=== PATIENT | male | born 1995 | race Two or more races ===

== ENCOUNTER → 2020-01-15 | Emergency (ER) | payer MEDICAID, OTHER ==
[~2020-01-15] VITALS: Ht 162.6 cm; Wt 77.1 kg
[~2020-01-15] MED LIST: GUAIFENESI100 MG/5 M ORAL; VENTOLIN HFA18 GM INH
--- NOTE | 2020-01-15 18:59 | NUR ---
ED Nurse Note: pt walked in to ED for c/o SOB x 5 days. sp02 97% RA Denies recent travel. T 97.8
[2020-01-15 19:00] VITALS: BP 127/85
--- NOTE | 2020-01-15 19:02 | Emergency Room Report ---
History of Present Illness General Chief Complaint: Dyspnea/Respdistress Source: Patient Present Illness HPI 24-year-old male with no significant past medical history here complaining of 5 days of shortness of breath. Denies any cough or congestion or fever. Reports that 5 days ago he had a minor sore throat however the sore throat has subsided. Denies any abdominal pain, nausea vomiting diarrhea. Reports that he has been staying home the whole time. Denies recent travel. Reports that he smokes marijuana however denies vaping and smoking tobacco. Denies asthma history. Reports that every time that he tries to take a deep breath he gets short of breath. Denies chest pain chest pain radiation. Has not taken medication for symptom relief. Patient sitting comfortably, oxygenation and temperature within normal limits. In no apparent distress. Allergies: Coded Allergies: No Known Allergies (Unverified , 01/15/20) COVID-19 Screening Contact w/high risk pt: No Recent Travel to affected area: No Experienced COVID-19 symptoms?: Yes COVID-19 symptoms experienced: Shortness of Breath Patient History Past Medical History: see triage record Past Surgical History: none Pertinent Family History: none Social History: Reports: drug use - Marijuana use Immunizations: UTD Reviewed Nursing Documentation: PMH: Agreed; PSxH: Agreed Nursing Documentation-PMH Past Medical History: No Stated History Hx Cardiac Problems: No Hx Hypertension: No Hx Pacemaker: No Hx Asthma: No Hx COPD: No Hx Diabetes: No Hx Cancer: No Hx Gastrointestinal Problems: No Hx Dialysis: No History Of Psychiatric Problem: No Hx Neurological Problems: No Hx Cerebrovascular Accident: No Hx Seizures: No Review of Systems All Other Systems: negative except mentioned in HPI Physical Exam Vital Signs Date Time Temp Pulse Resp B/P (MAP) Pulse Ox O2 Delivery O2 Flow Rate FiO2 01/15/20 18:56 97.9 80 19 127/85 (99) 97 Room Air Sp02 EP Interpretation: reviewed, normal General Appearance: no apparent distress, alert, GCS 15, non-toxic Head: normocephalic, atraumatic Eyes: bilateral eye normal inspection, bilateral eye PERRL ENT: hearing grossly normal, normal pharynx, no angioedema, normal voice Neck: full range of motion, supple/symm/no masses Respiratory: lungs clear, no rhonchi, no wheezing Cardiovascular #1: regular rate, rhythm, no edema, no murmur Gastrointestinal: soft Genitourinary: no CVA tenderness Musculoskeletal: back normal Neurologic: alert, motor strength/tone normal, oriented x3, sensory intact, responsive, speech normal Psychiatric: judgement/insight normal, memory normal, mood/affect normal, no suicidal/homicidal ideation Skin: no rash Lymphatic: no adenopathy Medical Decision Making PA Attestation All my diagnosis and treatment plans were reviewed ad discussed with my supervising physician Dr. Cummings Diagnostic Impression: Primary Impression: Dyspnea Additional Impression: URI (upper respiratory infection) ER Course 24-year-old male with no significant past medical history here complaining of 5 days of shortness of breath. Denies any cough or congestion or fever. Reports that 5 days ago he had a minor sore throat however the sore throat has subsided. Denies any abdominal pain, nausea vomiting diarrhea. Reports that he has been staying home the whole time. Denies recent travel. Reports that he smokes marijuana however denies vaping and smoking tobacco. Denies asthma history. Reports that every time that he tries to take a deep breath he gets short of breath. Denies chest pain chest pain radiation. Has not taken medication for symptom relief. Patient sitting comfortably, oxygenation and temperature within normal limits. In no apparent distress. Ddx considered but are not limited to: Coronavirus, strep pharyngitis, URI, tonsillitis, peritonsillar abscess, influneza Vital signs: are WNL, pt. is afebrile H&PE are most consistent with: Dyspnea most likely secondary to coronavirus, URI ORDERS: Guaifenesin, albuterol inhaler ED INTERVENTIONS: None required at this time. DISCHARGE: At this time pt. is stable for d/c to home. Will provide printed patient care instructions, and any necessary prescriptions. Care plan and follow up instructions have been discussed with the patient prior to discharge. No imaging needed at this time as patient has normal vital signs and lungs are clear to auscultation, take medication as directed, follow-up with your primary doctor, you need to stay home for self quarantine due to Covid 19 precautions for 14 days Last Vital Signs Date Time Temp Pulse Resp B/P (MAP) Pulse Ox O2 Delivery O2 Flow Rate FiO2 01/15/20 18:56 97.9 80 19 127/85 (99) 97 Room Air Disposition: HOME, SELF-CARE Condition: Stable Scripts Guaifenesin* (GUAIFENESIN*) 100 Mg/5 Ml Liquid 15 ML ORAL Q6H, #120 ML 0 Refills Prov: Joseph Jessica 01/15/20 Albuterol Sulfate (VENTOLIN HFA) 18 Gm Hfa.aer.ad 2 PUFFS INH EVERY 6 HOURS, #18 GM 0 Refills Prov: Joseph Jessica 01/15/20 Patient Instructions: Shortness of Breath, [id number], Upper Respiratory Infection, Adult Additional Instructions: Take medication as directed, follow-up with your primary doctor, you need to stay home for self quarantine due to Covid 19 precautions for 14 days Joseph Jessica Jan 15, 2020 19:02
[2020-01-15 19:16] VITALS: BP 120/78
--- NOTE | 2020-01-15 19:16 | NUR ---
ER DISCHARGE NOTE: Patient is cleared to be discharged per ERMD, pt is aox4, on room air, with stable vital signs. pt was given dc and prescription instructions, pt was able to verbalize understanding, pt id band removed without complications. pt is able to ambulate with steady gait. pt took all belongings.
== END | disposition home or self-care (01) ==
LOC: EDUNIT# 18:55 → EDBD 19:46 → EMR 20:00
DX: J06.9 Acute upper respiratory infection, unspecified (principal); R06.00 Dyspnea, unspecified; F12.90 Cannabis use, unspecified, uncomplicated
CPT/HCPCS: 99282